=== PATIENT | female | born 1980 | race African-American/Black ===

== ENCOUNTER 2018-06-19 13:41 | Emergency (ER) | payer MEDICAID ==
[2018-06-19 13:45] VITALS: Ht 170.2 cm
[2018-06-19 15:04] VITALS: BP 118/77
== END 2018-06-19 15:04 | disposition home or self-care (01) ==
LOC: ED 13:41
DX: S90.32XA Contusion of left foot, initial encounter (principal); I10 Essential (primary) hypertension; E11.9 Type 2 diabetes mellitus without complications; Z88.5 Allergy status to narcotic agent; Z88.8 Allergy status to other drugs, medicaments and biological substances; Z94.1 Heart transplant status; X15.3XXA Contact with hot saucepan or skillet, initial encounter; Y93.89 Activity, other specified; Y92.89 Other specified places as the place of occurrence of the external cause; Y99.8 Other external cause status

== ENCOUNTER 2020-03-19 18:51 | Inpatient (IN) | payer OTHER ==
[~2020-03-19] VITALS: Ht 170.2 cm; Wt 115.3 kg
--- NOTE | 2020-03-19 19:05 | NUR ---
DR BRAVO AT BEDSIDE FOR EVAL.
--- NOTE | 2020-03-19 19:15 | NUR ---
PATIENT BIBA FROM HOME, C/O GENERALZIED WEAKNESS. PATIENT STATES SHE WAS D/C TODAY FROM [facility], WAS ADMITTED AT [facility] IN JANUARY FOR ACUTE KIDNEY FAILURE, THEN TRANSFERED TO [facility]. PATIENT STATES, L UPPER ARM SHUNT WAS PLACED ON TUESDAY AND HAD DIALYSIS ON YESTERDAY (03/18/20). PATIENT AAOX4, NO ACUTE DISTRESS NOTED AT THIS TIME. NOTED DIALYSIS PORT ON R UPPER CHEST, L UPPER ARM SHUNT, R BREAT SWELLING, L ARM/RUFINO LE SWELLING. NOTED WOUND ON L UPPER CHEST, PER PATIENT SHE USE TO HAVE A PORT CATH, REMOVED ON 03/17/20. PATIENT IN GOWN, SAFETY PRECAUTIONS IN PLACE, MSE DONE BY DR. MACHADO, CALL LIGHT WITHIN REACH, WILL CONTINUE TO MONITOR.
--- NOTE | 2020-03-19 20:06 | NUR ---
LAB AT BEDSIDE
[2020-03-19 20:30] LABS: PLATELET COUNT 237 x10^3mcL (130-400)
[2020-03-19 20:34] LABS: RED CELL DISTRIBUTION WIDTH 30.3 % (11.5-14.5)
[2020-03-19 20:41] LABS: CALCIUM 8.6 mg/dL (8.5-10.1); CARBON DIOXIDE 27.5 mmol/L (21-32); CREATININE SERUM 2.2 mg/dL (0.6-1.0); POTASSIUM SERUM 3.3 mmol/L (3.5-5.1)
[2020-03-19 20:47] LABS: ALBUMIN 3.8 g/dL (3.4-5.0); BILIRUBIN TOTAL 0.63 mg/dL (0.20-1.00); TOTAL PROTEIN, SERUM 6.5 g/dL (6.4-8.2)
[2020-03-19 20:59] LABS: BAND NEUTROPHIL 3 % (0-10); METAMYELOCTE 2 % (0-2); MONOCYTE 9 % (0-7); SEGMENTED NEUTROPHILS 81 % (37-75)
--- NOTE | 2020-03-19 20:59 | NUR ---
CHANGED PATIENT DIAPER, PLACED NEW DIAPER, ELEVATED HEAD OF TO COMFORT, CALL LIGHT WITHIN REACH, WILL CONTINUE TO MONITOR.
[2020-03-19 21:03] LABS: rbc morphology (normal/abnorm) NORMAL (NORMAL); tear drop cell (dacryocyte) 1+
[2020-03-19 21:04] LABS: PLATELET MORPHOLOGY PLATELETS NORMAL
[2020-03-19] MEDS ORDERED: HYDROMORPHONE2 M1 PO ×2 (21:26→21:30)
[2020-03-19] MEDS ORDERED: SIMETHICONE80 MG PO (21:26)
[2020-03-19] MEDS ORDERED: MIRTAZAPINE15 M2 PO (21:26)
[2020-03-19] MEDS ORDERED: MORPHABOND ER15 MG PO (21:27)
[2020-03-19] MEDS ORDERED: KEFLEX500 M1 PO (21:27)
[2020-03-19] MEDS ORDERED: ONDANSETRON4 M3 PO (21:27)
[2020-03-19] MEDS ORDERED: APAP325 MG PO (21:27)
[2020-03-19] MEDS ORDERED: HYDRALAZINE HCL25 MG PO (21:28)
[2020-03-19] MEDS ORDERED: ARANESP0.025 MG/M IJ (21:28)
[2020-03-19] MEDS ORDERED: DELTASONE20 MG PO (21:29)
[2020-03-19] MEDS ORDERED: D-10001 TAB PO (21:29)
[2020-03-19] MEDS ORDERED: NOVOLOG FLEX100 U/M1 SC (21:30)
[2020-03-19] MEDS ORDERED: DULOXETINE HYDR30 MG PO (21:31)
[2020-03-19] MEDS ORDERED: METOLAZONE5 M1 PO (21:31)
[2020-03-19] MEDS ORDERED: TRAZODONE150 M1 (21:31)
[2020-03-19] MEDS ORDERED: HORIZANT300 MG PO (21:32)
[2020-03-19] MEDS ORDERED: EPO10I IV (21:32)
--- NOTE | 2020-03-19 21:44 | NUR ---
REPORT GIVEN TO AMINATA DELVALLE, EXT. [phone], ALL QUESTIONS ADDRDESS, CONFIRMED RM [id number]
--- NOTE | 2020-03-19 22:00 | NUR ---
RECEIVED PT FROM ED VIA [facility], CAME IN DUE TO WEAKNESS. AAOX4. DENIES HEADACHE/DIZZINESS. ABLE TO FOLLOW COMMANDS. NO SOB NOTED, LUNG SOUNDS CTA, O2 AT=99%, RA. DENIES CHEST PAIN/PRESSURE, SR ON THE MONITOR. DENIES ABDOMINAL DISCOMFORT. BOWEL SOUNDS ACTIVE. PT STATED THAT SHE HAS 7/10 LUE AND RIGT BREAST PAIN. W/ SWELLING ON THE LUE AND BLE. WEAK LEFT RADIAL PULSE AND WEAK PEDAL PULSES. W/ DRY SCAB ON THE LEFT CHEST (FROM THE PORTACATH THAT WAS REMOVED IN [place]). W/ STERI-STRIPS ON THE LEFT ARM (FROM THE SHUNT THAT WAS RECENTLY PLACED). W/ LUE SHUNT AND RIGHT CHEST DIALYSIS CATHETER, DRESSING CDI. PT STATED THAT SHE HAS OLIGURIA. ON HEMODIALYSIS 3-4 TIMES PER WEEK, LAST HD 03/18/20. NO IV SITE AT THIS TIME. SIDE RAILS UPX2. CALL LIGHT ON REACH. HOB ELEVATED AT 45 DEG. ENDORSED TO PRIMARY NURSE TATIANNA FOR CONTINUTY OF CARE
--- NOTE | 2020-03-19 22:00 | NUR ---
SEEN PT AT THIS TIME. NO COMPLAINTS AT THIS TIME. WILL CONTINUE TO MONITOR.
[2020-03-19 22:48] VITALS: BP 123/68
[2020-03-19 22:51] VITALS: Ht 170.2 cm; Wt 115.3 kg
--- NOTE | 2020-03-20 | NUR ---
DR. LEI PLACED IV TO R JUGULAR. IV PATENT AND INTACT, GOOD BLOOD RETURN, FLUSHES WELL. NO SIGNS OF ERYTHEMA, DRAINAGE, OR EDEMA NOTED. WILL CONTINUE TO MONITOR.
[2020-03-20 01:33] LABS: PHOSPHOROUS 3.9 mg/dL (2.5-4.9)
[2020-03-20 01:40] LABS: T3 TOTAL 0.44 ng/mL
[2020-03-20 01:43] LABS: FREE T4 0.78 ng/dL (0.76-1.46); FREE THYROXINE INDEX 1.6 ug/dL (1.4-4.5); T4(THYROXINE) 4.7 ug/dL (4.7-13.3)
[2020-03-20 01:45] LABS: CHOLESTEROL/HDL RATIO 2.8
--- NOTE | 2020-03-20 02:00 | NUR ---
PT AWAKE IN BED WATCHING TV. NO COMPLAINTS AT THIS TIME. PT STATES SHE IS OKAY AND COMFORTABLE AT THIS TIME. RR EVEN AND UNLABORED ON RA. CALL LIGHT WITHIN REACH. WILL CONTINUE TO MONITOR.
[2020-03-20 06:00] VITALS: BP 146/127
[2020-03-20] MEDS ORDERED: ELIQUIS2.5 MG PO (06:04)
--- NOTE | 2020-03-20 06:34 | NUR ---
PT AWAKE/WATCHING TV IN BED AT THIS TIME. NO SIGN OF ACUTE DISTRESS NOTED. RR EVEN AND UNLABORED ON RA. PT C/O PAIN 04/14 AT THIS TIME, DR. CASTILLO WAITING FOR CALL BACK. IV TO R JUGULAR, PATENT AND INTACT. CALL LIGHT WITHIN REACH. BED IN LOWEST POSITION. WILL ENDORSE CARE TO ONCOMING SHIFT NURSE.
[2020-03-20 07:49] LABS: PLATELET COUNT 224 x10^3mcL (130-400)
[2020-03-20 08:02] VITALS: BP 99/56
[2020-03-20 08:17] LABS: CALCIUM 8.9 mg/dL (8.5-10.1); CARBON DIOXIDE 24.5 mmol/L (21-32); CREATININE SERUM 2.5 mg/dL (0.6-1.0); POTASSIUM SERUM 3.2 mmol/L (3.5-5.1)
[2020-03-20 08:47] LABS: RED CELL DISTRIBUTION WIDTH 29.6 % (11.5-14.5)
--- NOTE | 2020-03-20 10:07 | NUR ---
ECHO PENDING. PATIENT HAD ECHO 5 WEEKS AGO AT [facility]. NEED TO REQUEST RECORDS FOR RESULTS. PREVIOUS ECHO DONE LESS THAN 6 MONTHS.
[2020-03-20 11:05] LABS: SEGMENTED NEUTROPHILS 78 % (37-75)
[2020-03-20 11:09] LABS: BAND NEUTROPHIL 2 % (0-10); MONOCYTE 9 % (0-7)
[2020-03-20 11:10] LABS: rbc morphology (normal/abnorm) ABNORMAL (NORMAL)
[2020-03-20 11:11] LABS: burr cell (echinocyte) 1+; tear drop cell (dacryocyte) 1+
--- NOTE | 2020-03-20 11:42 | NUR ---
Notified Dr. Sheldon of abnormal lab values. Orders received. Pt complained of pain in right breast and KI old AV shunt area. IV in right IJ is infiltrated. made aware.
[2020-03-20 16:48] VITALS: BP 163/71
--- NOTE | 2020-03-20 18:46 | NUR ---
Patient resting comfortably in bed, pain is controlled with PRN IM Morphine. HD done today, tolerated well. Right breast swelling/redness with generalized edema in all extremities. Had a BM today. Will endorse to night RN.
--- NOTE | 2020-03-20 19:43 | NUR ---
RECEIVED PT FROM DAY SHIFT NURSE. PT A/OX4. TELE#[address] AT 105. PT HAS EDEMA TO LUE AND BLE 3+. RR EVEN AND UNLABORED ON RA. PT HAS LUE SHUNT AND R CHEST DIALYSIS CATHETER. PT HAD DIALYSIS TODAY 03/20 WITH 2.6L OUTPUT. R BREASK DISCOLORATION, L ARM STERRI STRIPS, AND L CHEST SCAB BELLA. PT DENIES CHEST PAIN, SOB, OR PAIN AT THIS TIME. PT C/O ITCHYNESS TO BUE, WILL MEDICATE PER NOV. PT HAS NO IV ACCESS, DR. MILLS. CALL LIGHT WITHIN REACH. BED IN LOWEST POSITION. WILL CONTINUE TO MONITOR.
[2020-03-20 20:08] VITALS: BP 144/107
--- NOTE | 2020-03-21 01:40 | NUR ---
PT SLEEPING AT THIS TIME. NO C/O PAIN OR DISCOMFORT. NO SIGNS OF ACUTE DISTRESS NOTED. RR EVEN AND UNLABORED ON RA. CALL LIGHT WITHIN REACH. WILL CONTINUE TO MONITOR.
[2020-03-21 05:50] VITALS: BP 115/64
--- NOTE | 2020-03-21 06:17 | NUR ---
PT AWAKE IN BED RESTING COMFORTABLY. PT C/O ITCHYNESS, MEDICATED PT WITH BENEDRYL PER NOV. MORNING MEDICATION ADMINISTERED. NO SIGNS OF ACUTE DISTRESS NOTED. RR EVEN AND UNLABORED ON RA. NO C/O PAIN AT THIS TIME. CALL LIGHT WITHIN REACH. BED IN LOWEST POSITION. WILL ENDORSE CARE TO ONCOMING SHIFT NURSE.
--- NOTE | 2020-03-21 08:18 | NUR ---
AT 0730 - RECEIVED PATIENT FROM NIGHT NURSE. AWAKE, ALERT AND ORIENTED. PATIENT SITTING UP IN BED. NO DISTRESS. MONITOR SHOWING SINUS TACH; RATE 100-110. NO ECTOPIES NOTED. NO IV ACCESS. NOTED EXTENSIVE BLE AND BUE EDEMA 3+ R UPPER CHEST DIALYSIS CATHETER IN PLACE. AV SHUNT (NOT-IN USE) IN KI.
[2020-03-21 08:31] VITALS: BP 107/73
[2020-03-21 08:31] LABS: BASOPHIL % 0.2 % (0-2); PLATELET COUNT 231 x10^3mcL (130-400)
[2020-03-21 08:48] LABS: RED CELL DISTRIBUTION WIDTH 30.1 % (11.5-14.5)
[2020-03-21 08:50] LABS: CALCIUM 8.7 mg/dL (8.5-10.1); CARBON DIOXIDE 28.3 mmol/L (21-32); CREATININE SERUM 2.4 mg/dL (0.6-1.0); MAGNESIUM 1.9 mg/dL (1.8-2.4); POTASSIUM SERUM 3.6 mmol/L (3.5-5.1)
--- NOTE | 2020-03-21 10:02 | NUR ---
AT 0900 - MEDICATED WITH IM MORPHINE 2MG PER EMAR
[2020-03-21 12:42] VITALS: BP 87/59
--- NOTE | 2020-03-21 13:36 | NUR ---
DIALYSIS NURSE AT BEDSIDE FOR TODAY'S HEMODIALYSIS.
--- NOTE | 2020-03-21 14:21 | NUR ---
HEMODIALYSIS IN PROGRESS. CASE MANAGEMENT HAS SPOKEN WITH PATIENT. PATIENT REQUESTING PAIN MEDICATION.
--- NOTE | 2020-03-21 14:23 | NUR ---
PATIENT MADE AWARE THAT IM MORPHINE CANNOT BE ADMINSITERED AT THIS TIME DUE TO HYPOTENSION. CURRENT BP 70/40 DURING DIALYSIS.
--- NOTE | 2020-03-21 15:09 | NUR ---
DIALYSIS NURSE ADMINISTERING 50 ML ALBUMIN 25% FOR BP SUPPORT.
--- NOTE | 2020-03-21 15:23 | NUR ---
PHYSICAL THERAPY NOTE PATIENT IS ON DIALYSIS. TO FOLLOW UP
--- NOTE | 2020-03-21 16:59 | NUR ---
NASAL SWAB FOR COVID-19 COLLECTED AND TAKEN TO LAB. JEAN BAPTISTE VIRUS REST WAS DONE FOR PLACEMENT PURPOSES. HEMODIALYSIS NEARING COMPLETION. BP NOW STABLE. BLOOD GLUCOSE LEVEL 149. PATIENT SLEEPING GREATER PART OF THE DAY. HAS REFUSED LAST 2 DOSES OF TRAZODONE.
[2020-03-21 17:45] VITALS: BP 111/74
--- NOTE | 2020-03-21 18:50 | NUR ---
AT 1745 - HEMODIALYSIS COMPLETED. NO FLUID WAS REMOVED. PATIENT RECEIVED A TOTAL OF 700 ML FLUID DURING DIALYSIS FOR BP SUPPORT. POST HD BP 111/74. HR 99 PATIENT NOW EATING DINNER. AT 1830 - RECEIVED ORDER FOR IV ROCEPHIN. PATIENT HAS NO IV ACCESS. CALL PLACED FOR RESIDENT DOCTOR, DR HERRERA TO NOTIFY OF LACK OF IV ACCESS. WILL ENDORSE CARE TO NIGHT NURSE.
--- NOTE | 2020-03-21 20:15 | NUR ---
PATIENT RESTING IN BED, A/O X4, VERBALLY RESPONSIVE, DENIES HEADACHE AND DIZZINESS. BREATHING E/U ON ROOM AIR, DENIES SOB, SPO O2 94%. TELE #39, HR 98, DENIES CHEST PAIN. ABD SOFT AND ROUND. HD PATIENT, HD SESSIONS T-TH-SAT, HAD HD SESSION EARLIER TODAY WITH NO FLUIDS OUT, 700 ML FLUIDS IN AND LAST HD 03/21 2.6L OUT, SCHEDUED FOR HD SESSION TOMORROW, DIALYSIS NURSE ALREADY MADE AWARE OF HD SESSION TOMORROW. LUE SHUNT, THRILL AND BRUIT PRSENT, R CHEST DIALYSIS CATHER DRESSED AND CDI, +3 EDEMA NOTED IN BUE AND BLE, NO IV ACCESS @ THIS TIME, ALREADY MADE AWARE DURING DAY SHIFT PER DAY NURSE. DISCOLORATION TO R BREAST, 6 STERI STRIPS TO L ARM, CLOSED SCAB TO L CHEST D/T PREVIOUS PORT. PATIENT C/O OF 8/10 PAIN L ARM AND R BREAST, WILL GIVE PAIN MED PRN PER EMAR. CALL LIGHT WITHIN REACH, BED IN LOWEST POSITION. WILL CONTINUE TO MONITOR.
[2020-03-21 21:34] VITALS: BP 81/45
--- NOTE | 2020-03-21 21:40 | NUR ---
PATIENT'S BP 81/45, HR 97, DENIES DIZZINESS. UNABLE TO GIVE MORPHINE FOR PAIN 8/10 IN R BREAST AND L ARM DUE TO LOW BP. DR. GREY MADE AWARE, REQUESTED IF RESIDENT PHYSICIAN MAY PLACE A NEW PAIN MED PRN ORDER. DR. GREY STATED DUE TO PATIENT'S ALLERGIES, HE WILL HAVE TO LOOK OVER TO SEE WHAT PAIN MED CAN BE PRESCRIBED FOR PATIENT. WILL FOLLOW UP WITH DR. GREY.
--- NOTE | 2020-03-21 22:21 | NUR ---
PATIENT HAS PROCRIT PREPARED, HGB 8.5, UNABLE TO COMPLETE HD SESSION TODAY DUE TO LOW BP, INSTEAD HAD 700 ML FLUIDS INFUSED. LAST HD SESSION 03/20 206 OUT. CALLED NEPHROLOGY GROUP, DR. ANDERSON MADE AWARE, HE STATED TO HOLD THE PROCRIT FOR NOW.
--- NOTE | 2020-03-22 00:30 | NUR ---
PATIENT RESTING IN BED, STATED THAT PAIN IS "FINE" RIGHT NOW AND WANT TO SLEEP. BREATHING E/U, SHOWS NO SIGN OF PAIN OR DISTRESS. CALL LIGHT WITHIN REACH, WILL CONTINUE TO MONITOR.
--- NOTE | 2020-03-22 02:40 | NUR ---
PATIENT C/O OF PAIN 8/10 IN R BREAST AND LUE, PATIENT HAS MORPHINE PRN PER EMAR, WILL ASSESS PATIENT'S BP FIRST.
--- NOTE | 2020-03-22 03:00 | NUR ---
VS TAKEN, BP 119/103, HR 100, RR 18, AND PAIN LEVEL 8/10 IN R BREAST AND LUE. GAVE MORPHINE IM. ASSISTED PATIENT TO USE BEDPAN, CLEANSED PERINEAL AREA AND CHANGED CHUX PADS, COLLECTED URINE SAMPLE FOR UDS. CALL LIGHT WITHIN REACH, BED IN LOWEST POSITION. WILL CONTINUE TO MONITOR.
--- NOTE | 2020-03-22 03:50 | NUR ---
PATIENT REQUESTED FOR NOVA INSERTION, STATED THAT SHE STILL FEELS SOME URINE IN HER BLADDER, AND STATED TAHT SHE USUALLY PEES ONCE A SHIFT. INFORMED PATIENT THAT A BLADDER SCAN WILL BE CONDUCTED FIRST. BLADDER SCAN PERFORMED, URINE VOLUME FOUND WAS BETWEEN 40-90 ML. PATIENT STATED TAHT SHE IS GOOD WITHOUT NOVA.
[2020-03-22 04:54] VITALS: BP 94/58
--- NOTE | 2020-03-22 06:53 | NUR ---
PATIENT RESTING IN BED, DENIES PAIN @ THIS TIME. SCHEDULED FOR HD TODAY, LAST HD SESSION 03/20 2.6L OUT AND YESTERDAY HD WAS ATTEMPTED BUT DUE TO PATIENT'S LOW BP, 700 ML FLUIDS INFUSED. HD ACCESS @ TUNNELED CATHETER IN R UPPER CHEST, AV FISTULA THRILL AND BRUIT PRESENT. CALL LIGHT WITHIN REACH, ALL NEEDS MET, SAFETY PRECAUTIONS MAINTAINED THROUGHOUT SHIFT. WILL ENDORSE CARE TO DAY NURSE. CALLED RESIDENT PHYSICIAN TO FOLLOW UP ON PAIN MEDICATION PRN FOR PATIENT IN CASE PATIENT'S BP IS LOW AND MORPHINE CANNOT BE GIVEN. DR. HOOD STATED THAT HE WILL PLACE PAIN MEDICATION PRN ORDER.
[2020-03-22 07:07] LABS: PLATELET COUNT 218 x10^3mcL (130-400)
[2020-03-22 07:33] LABS: RED CELL DISTRIBUTION WIDTH 30.1 % (11.5-14.5)
[2020-03-22 07:38] LABS: ALBUMIN 3.8 g/dL (3.4-5.0); BILIRUBIN TOTAL 0.9 mg/dL (0.20-1.00); CALCIUM 8.8 mg/dL (8.5-10.1); CARBON DIOXIDE 26.9 mmol/L (21-32); CREATININE SERUM 2.5 mg/dL (0.6-1.0); POTASSIUM SERUM 4.3 mmol/L (3.5-5.1); TOTAL PROTEIN, SERUM 6.2 g/dL (6.4-8.2)
--- NOTE | 2020-03-22 08:21 | NUR ---
AAO TIMES 4. TELE # 39 SR. LUNGS CTA BUL, DIMINISHED BASES. O2 SAT ON RA 94%. BS'S ACTIVE TIMES 4. WITH EDEMA +2 TO LUE AND BLE, ALSO HER BREASTS ARE EDEMETOUS. NO IV ACCESS, PREVIOUS SHIFTS WERE UNABLE TO ACCESS HER. OBESE. HD PORT TO RIGHT CHEST WALL. AV SHUNT TO LUE ON FOREARM WITH BRUIT AND THRILL,NOT BEING ACCESSED AT THIS TIME. LEFT CHEST WALL WITH DRIED SCAB FROM PREVIOUS HD ACCESS DEVICE, SITE CDI, NO REDNESS OR DRAINAGE. COOPERATIVE. NO SOB.
[2020-03-22 08:45] VITALS: BP 86/55
[2020-03-22 09:20] VITALS: BP 86/54
--- NOTE | 2020-03-22 10:31 | NUR ---
I HELD THE COREG, LISA AND WENDY THIS AM, FOR A BP OF 86/54, DR RODRÍGUEZ IS AWARE OF ALL THE ABOVE, HE ORDERED MIDODRIN TO HELP HER BP.
[2020-03-22 11:47] LABS: AMPHETAMINE QUAL UR NONE DETECTED (See below)
[2020-03-22 12:05] VITALS: BP 115/77
--- NOTE | 2020-03-22 14:20 | NUR ---
Intervention/RDN Recommendation(s): 1) Continue CCHO diet 2) Add renal diet d/t ESRD
--- NOTE | 2020-03-22 14:20 | NUR ---
Initial Nutrition Assessment- Isabel Bess [id number] Dx: weakness, renal failure PMHx: protein S deficiency, antiphospholipid syndrome, DM, new onset renal failure on dialysis diagnosed 1 month ago, HTN, blood clots, arnold chiari, AV shunt L arm, hypothyroid PSHx: heart transplant 2 years ago, R breast cysts Labs: BUN: 47H, Creat: 2.5H, total protein: 6.2L, troponin: 0.143H, BNP: 2019.43H (03/19) Meds: Benadryl cream, cellcept, coreg, Cymbalta, desyrl, D50, folic acid, eliquis, Humulin R, keflex, Lasix, morphine sulfate, prednisone, Procrit, Remeron, sandimmune, vitamin B12, zestril Diet: CCHO PO Intakes: 75% x 3 meals Ht: 5'7 Wt: 253.7 lbs/115.326 kg BMI: 39.8 IBW: 135 lbs %IBW: 188% UBW: N/A Age: 39 Food Allergies: NKFA Skin: LCW with scab from previous HD port, no redness or drainage Trey: 19 Edema: +2 LUE + BLE GI: Bowel sounds active, last BM: 03/20/2020 RD Note (03/22/20): pt is on dialysis Tues/Thurs/Sat, pt complains of BLE edema and generalized, weakness, SOB on exertion, per MD progress note pt reported edema has improved after HD and wants to go back to rehab at [facility], per progress note- LE edema 2/2 CHF vs. ESRD, R breast pain likely 2/2 cellulitis, megaloblastic anemia, hypokalemia, DMOOC A1C pending, pt asleep at time of visit Problem with: N/V/D/C: none Problems with: Chewing/Swallowing: no Current appetite: good Recent wt changes: N/A %wt change: N/A Vitamin/Supplement: none Special Diet at Home: N/A Physical activity: N/A Education: pt asleep at time of visit, left CKD stage 5 dialysis nutrition education handout at bedside Estimated Nutritional Needs Based on IBW of 135 lbs/61.4 kg Energy: 6137-8501 kcal/d (30-35 kcal/kg for HD) Protein: 74-86 (1.2-1.4 g/kg for HD) Fluid: 1000 mL + urine output or per MD Nutrition Diagnosis 1) Altered nutrition related lab values related to ESRD, NSTEMI as evidenced by elevated BUN/Cr levels Intervention/RDN Recommendation(s): 1) Continue CCHO diet 2) Add renal diet d/t ESRD Monitor/Evaluate Goal: have pt meet 75% of estimated nutrient needs (met, ongoing) Monitor: PO intake, Labs, Skin integrity, Weights. F/U in 2-3 days as HR on 03/24-
[2020-03-22 14:49] LABS: MONOCYTE 2 % (0-7); SEGMENTED NEUTROPHILS 84 % (37-75)
[2020-03-22 14:50] LABS: rbc morphology (normal/abnorm) ABNORMAL (NORMAL); target cell (codocyte) 1+; tear drop cell (dacryocyte) 1+
[2020-03-22 16:57] VITALS: BP 100/64
--- NOTE | 2020-03-22 18:41 | NUR ---
ERIN THE PIC LINE NURSE CALLED ME AND SAID I MUST GET AN OK FROM THE PROGRAM ATTENDANT . I CALLED DR ANDERSON, AND HE SAID NOT TO INSERT A PIC LINE, HER PAIN CAN BE MANAGED PO OR IM, IF THATS ALL WE NEEDED IT FOR. THE PATIENT WAS C/O WANTING AN IV SITE, BECAUSE SHE IS GETTING IM MORPHINE. DR ANDERSON SAID THAT WE MIGHT NEED THAT SITE FOR HD IF THE CURRENT SITES STOP WORKING.
--- NOTE | 2020-03-22 19:35 | NUR ---
PATIENT RESTING IN BED, A/O X4, VERBALLY RESPONSIVE, DENIES DIZZINESS AND HEADACHE. BREATHING E/U ON ROOM AIR, SPO2 96%, DENIES SOB. TELE #39, SINUS TACHY, HR 106 DENIES CHEST PAIN. ABD SOFT AND ROUND. ESRD ON HD,CURRENTLY UNDEROING HD WITH DIALYSIS NURSE @ BEDSIDE, HD ACCESS @ TUNNELED CATHETER R UPPER CHEST, ALSO HAS AV SHUNT IN L ARM. +3 EDEMA IN BUE AND LUE. REPORTS PAIN LEVEL 8/10 IN R BREAST AND L ARM. R BREAST DISCOLORAITON, L ARM STERRI STRIPS AND SCAB @ L UPPER CHEST DUE TO PREVIOUS HD PORT PLACEMENT. NO IV ACCESS. CALL LIGHT WITHIN REACH, BED IN LOWEST POSITION. WILL CONTINUE TO MONITOR.
--- NOTE | 2020-03-22 20:10 | NUR ---
MADE A NOTE TO RESIDENT PHYSICIAN TO SPEAK WITH PATIEN REGARDING CARE PLAN WHEN AVAIABLE.
--- NOTE | 2020-03-22 20:36 | NUR ---
DR. GREY MADE AWARE OF PATIENT'S REQUEST TO SPEAK WITH PHYSICIAN REGARDING CARE, HE STATED THAT HE WILL SPEAK WITH PATIENT.
[2020-03-22 21:20] VITALS: BP 98/60
--- NOTE | 2020-03-22 21:45 | NUR ---
PATIENT C/O OF PAIN IN BUTTOCKS, ASSESSED SKIN, AND THERE IS A SMALL PINK SKIN OPENING IN L BUTTOCK, TOOK PICTURE OF WHICH WILL BE PLACED IN PATIENT'S CHART AND PLACED OPTIFOAM. PATIENT HAD RECEIVED HD EARLIER THIS EVENING, PLANNED ON ADMINISTERING PROCRIT HOWEVER PATIENT STATED THAT SHE WILL LIKE TO RECEIVE IT LATER BECAUSE IT "FARRAR" WHEN IT IS ADMINSTERED. PATIENT ALSO REQUESTED FOR FOAM WEDGE TO BE PLACE UNDER HER R SIDE TO HELP OFFSET PRESSURE OFF BUTT. PLACED FOAM WEDGE UNDER PATIENT'S R SIDE.
--- NOTE | 2020-03-22 22:15 | NUR ---
DR. GREY STATED THAT THE DAY PHYSICIANS WILL SPEAK WITH THE PATIENT REGARDING HER CARE, WILL NOTIFY PATIENT. DR. GREY WAS ALSO MADE AWARE OF PATIENT'S SMALL WOUND OPENING ON L BUTTOCK OF WHICH PICTURE WAS PLACE IN PATIENT'S CHART. DR. GREY STATED HE WILL LOOK INTO THE PATIENT'S CHART AND SEE IF A WOUND CONSULT IS NEEDED.
--- NOTE | 2020-03-22 22:45 | NUR ---
PATIENT MADE AWARE THAT DAY PHYSICIANS WILL SPEAK WITH HER REGARDING CARE PLAN INSTEAD OF NIGHT PHYSICIAN, SHE VERBALIZED UNDERSTANDING. INQUIRED IF PATIENT WILL LIKE TO RECEIVE PROCRIT @ THIS TIME, SHE STATED SHE WILL LIKE TO HAVE IT LATER.
--- NOTE | 2020-03-23 00:35 | NUR ---
PATIENT RESTING IN BED, STATES THAT PAIN LEVEL 6/10 IS TOLERABLE @ THIS TIME. REMOVED FOAM WEDGE UNDER PATIENT, PATIENT LYING SUPING, WITH HOB ELEVATED @ 90 DEGREES PER PATIENT'S REQUEST. CALL LIGHT WITHIN REACH, WILL CONTINUE TO MONITOR.
--- NOTE | 2020-03-23 04:30 | NUR ---
PATIENT REQUESTED FOR AIR MATTRESS, WENT TO RETRIEVE AIR MATTRESS AND PUMP AND BROUGHT TO ROOM. PATIENT CHANGED MIND, STATED THAT SHE THOUGHT IT WAS A DIFFERNT TYPE AND THAT SHE IS "FINE" WITH HER CURRENT MATTRESS.
--- NOTE | 2020-03-23 05:14 | NUR ---
DR. GREY MADE AWARE AGAIN OF PATIENT'S SMALL WOUND OPENING ON L BUTTOCK, WILL DETERMINE IF WOUND CONSULT WILL BE MADE.
[2020-03-23 05:47] VITALS: BP 104/69
--- NOTE | 2020-03-23 06:00 | NUR ---
PATIENT RESTING IN BED, BREATHING E/U ON ROOM AIR 97%, STATED THAT PAIN IN R BREAST AND L ARM IS MORE TOLERABLE @ 6/10. HAD HD SESSION YESTERDAY WITH 2 LITERS OUT, HD ACCESS @ R UPPER CHEST, AV SHUNT THRILL AND BRUIT PRESENT. PATIENT HAS SMALL WOUND OPENING @ L BUTTOCK WITH OPTIFOAM, CDI, PICTURE ALREADY PLACED IN PATIENT CHART, DR. GREY ALREADY MADE AWARE, HE STATED THAT HE WILL DETERMINE IF A WOUND CONSULT WILL BE PLACED. CALL LIGHT WITHIN REACH, ALL NEEDS MET, SAFETY PRECAUTIONS MAINTAINED THROUGHOUT SHIFT. WILL ENDORSE CARE TO DAY NURSE.
[2020-03-23 08:30] VITALS: BP 104/44
--- NOTE | 2020-03-23 08:30 | NUR ---
AAO TIMES 4. TELE # 39 SR. LUNGS CTA BILATERALLY, SOMEWHAT DIMINISHED AT BASES. OBESE. BS'S ACTIVE TIMES 4. +2 EDEMA LUE AND BLE. PERIPHERAL PULSES PALPABLE. COOPERATIVE. SHE KNOWS TO TURN HERSELF EVERY 2 HOURS AND STATES SHE IS ABLE TO ALSO. OPTIFOAM TO LEFT INNER BUTTOCK. NO C/O PAIN. NO SOB. AIR MATTRESS AT BEDSIDE, BUT SHE IS REFUSING AT THIS TIME.
[2020-03-23] MEDS ORDERED: COR3 PO (11:42)
[2020-03-23] MEDS ORDERED: ZES5 PO (11:42)
[2020-03-23] MEDS ORDERED: L20 PO (11:43)
[2020-03-23] MEDS ORDERED: PHARMASSURE V500 MCG PO (11:44)
[2020-03-23] MEDS ORDERED: SAN25 PO (11:45)
[2020-03-23] MEDS ORDERED: FOL1 PO (11:45)
[2020-03-23] MEDS ORDERED: CEL250 GT (11:45)
[2020-03-23] MEDS ORDERED: PROA PO (11:47)
[2020-03-23 12:30] VITALS: BP 100/55
[2020-03-23 14:52] VITALS: BP 100/55
--- NOTE | 2020-03-23 16:35 | NUR ---
I REMINDED HER THAT SHE HAS A BEDSORE ON HER BUTTOCKS AND ASKED HER IF SHE HAS BEEN TURNING HERSELF Q 2 HOURS SHE AGREED TO DO THIS AM. SHE REFUSED TO BE TURNED.
[2020-03-23 17:18] LABS: RED BLOOD CELLS 2.35 M/mm3 (4.10-5.10)
[2020-03-23 17:22] VITALS: BP 104/63
[2020-03-23 17:28] LABS: IRON 52 ug/dL (50-170); TOTAL IRON BINDING CAPACITY 298 ug/dL (250-450)
--- NOTE | 2020-03-23 18:17 | NUR ---
AAO TIMES 4, WHEN AWAKENED. SHE HAS SLEPT ALL DAY. NO C/O PAIN. NO SOB. COOPERATIVE TODAY, EXCEPT WITH TURNING. SHE DOESNT LIKE TO BE AWAKENED. NO IV SITE. RIGHT CHEST WALL HD PORT, LFA AV SHUNT. HD ORDERED FOR TOMORROW.
--- NOTE | 2020-03-23 20:15 | NUR ---
PATIENT RESTING IN BED, A/0 X4, VERBALLY RESPONSIVE, DENIES DIZZINESS AND HEADACHE. BREATHING E/U ON ROOM AIR, 98%, DENIES SOB AND PAIN. TELE # 39, NSR, HR 94. ABD SOFT AND ROUND. +3 EDEMA TO BUE AND BLE. R BREAST DISCOLORATION, STERRI STRIPS TO LUE AND SCAB @ L CHEST DUE TO PREVIOUS HD PORT. SCHEDULED FOR HD SESSION TMRW, WILL CALL DIALYSIS NURSE HERNANDEZ TO CONFIRM SESSION, LAST HD 03/22 2L OUT, HD ACCESS @ TUNNELED CATHETER R UPPER CHEST, AV SHUNT @ L ARM WITH THRILL AND BRUIT PRESENT. C/O OF 8/10 R BREAST AND L ARM, WILL GIVE PAIN MEDICATION PRN PER EMAR. OPTIFOAM IN PLACE ON L BUTTOCK, PATIENT REFUSED TO BE TURNED @ THIS TIME. CALL LIGHT WITHIN REACH, BED IN LOWEST POSITION. WILL CONTINUE TO MONITOR.
--- NOTE | 2020-03-23 20:42 | NUR ---
CALLED DIALYSIS NURSE MARY TO CONFIRM HD SESSION TMRW, SHE STATED THAT SHE WILL COME TOMORROW.
[2020-03-23 20:50] VITALS: BP 116/77
--- NOTE | 2020-03-24 00:45 | NUR ---
TOOK PICTURE OF PATIENT'S SMALL SKIN OPENING ON L BUTTOCK AFTER REMOVING OPTIFOAM, SCANT PINK DRAINAGE FROM WOUND, WILL PLACE PICTURE IN PATIENT'S CHART. PLACE NEW OPTIFOAM OVER L BUTTOCK. PATIENT TOLERATED PROCEDURE WELL.
--- NOTE | 2020-03-24 04:34 | NUR ---
PATIENT VOIDED REDDISH BROWN TINGED URINE, CHUX PADS CHANGED, PATIENT CLEANSED, OPTIFOAM SOILED AND REMOVED AND REPLACED WITH SMALL ISLAND DRESSING. PATIENT REFUSED OPTIFOAM AND REQUESTED FOR SMALLER DRESSING. PATIENT C/O OF PAIN 8/10 R BREAST AND L ARM, WILL GIVE PAIN MEDICATION PRN.
[2020-03-24 06:07] VITALS: BP 129/78
--- NOTE | 2020-03-24 06:30 | NUR ---
PATIENT RESTING IN BED, DENIES PAIN @ THIS TIME. SCHEDULED FOR HD SESSION TODAY, DIALYSIS NURSE MARY AWARE, HD ACCESS @ R UPPER CHEST, DRESSED, CDI, SHUNT @ LUE, THRILL AND BRUIT PRESENT, LAST HD 03/22 2L OUT. ISLAND DRESSING TO L BUTTOCK, WOUND PIC OF L BUTTOCK TAKEN, AND PLACED IN PATIENT CHART.TAKEN EARLIER DURING SHIFT CALL LIGHT WITHIN REACH, ALL NEEDS MET, NO SIGNIFICANT CHANGES DURING SHIFT, WILL ENDORSE CARE TO DAY NURSE.
--- NOTE | 2020-03-24 07:52 | NUR ---
RECEIVED PATIENT FROM [facility]. PATIENT SEATED IN BED AT THIS TIME, NO COMPLAINTS OF PAIN OR SOB. SPOKE WITH PATIENT ABOUT POSSIBLE PLAN FOR TODAY INLUDING PO MEDICATIONS, HD TODAY, AND POSSIBLE TRANSFER TO [facility]. PATIENT AWARE. INFORMED BY MOOK RAND THAT HD HAS BEEN ORDERED AND CONTACTED HD NURSE MARY. WILL HAVE TO WAIT FOR CASE MANAGEMENT TO SEE IF TRANSFER WILL HAPPEN TODAY PATIENT STATES THEY ARE ABLE TO DO HD AT [facility]. PATIENT ALSO ASKED FOR POSSIBLE SHOWER TODAY. PATIENT BUE & BLE EDEMATOUS, FRANKIE CATH IN PLACE, CDI, AND AV SHUNT TO L UPPER ARM. CALL LIGHT IN REACH.
[2020-03-24 09:42] VITALS: BP 123/85
[2020-03-24 13:29] VITALS: BP 105/69
--- NOTE | 2020-03-24 14:14 | NUR ---
PATIENT WITH PT ERIC FOR PHYSICAL THERAPY, PATIENT OBSERVED USE WALKER TO BATHROOM. PATIENT BACK TO BED AT THIS TIME.
--- NOTE | 2020-03-24 15:35 | NUR ---
HD NURSE HERNANDEZ AT BEDSIDE FOR HD TREATMENT.
[2020-03-24 16:54] VITALS: BP 105/69
[2020-03-24 17:30] VITALS: BP 111/74
--- NOTE | 2020-03-24 19:25 | NUR ---
PATIENT COMPLETED HD TREATMENT WITH 2 L OUT. PATIENT ACCEPTED TO [facility], TRANSPORT ARRANGED FOR 1900 VP PROJECT. REPORT GIVEN TO [facility] NURSE. TRANSFER PACKET COMPILED WITH CD IMAGES. SIGNATURES OBTAINED FOR TRANSFER AND DISCHARGE. TELE RETURNED TO [facility]. TRANSPORT TEAM ARRIVED, PATIENT WITH BELONINGS AND PACKET, ESCORTED DOWNSTAIRS VIA [facility].
== END 2020-03-24 19:25 | DRG 194 ==
LOC: ED 18:51 → DU 21:01
PROVIDERS: Emergency Medicine; Internal Medicine; Internal Medicine Hematology & Oncology; ADMIT Family Medicine; ATTEND Family Medicine
PROC: 5A1D70Z Performance of Urinary Filtration, Intermittent, Less than 6 Hours Per Day (ICD-10-PCS; principal; 2020-03-20)
PROC: 5A1D70Z Performance of Urinary Filtration, Intermittent, Less than 6 Hours Per Day (ICD-10-PCS; 2020-03-21)
PROC: 5A1D70Z Performance of Urinary Filtration, Intermittent, Less than 6 Hours Per Day (ICD-10-PCS; 2020-03-22)
PROC: 5A1D70Z Performance of Urinary Filtration, Intermittent, Less than 6 Hours Per Day (ICD-10-PCS; 2020-03-24)
DX: I13.2 Hypertensive heart and chronic kidney disease with heart failure and with stage 5 chronic kidney disease, or end stage renal disease (principal); N18.6 End stage renal disease; Z94.1 Heart transplant status; D53.1 Other megaloblastic anemias, not elsewhere classified; E11.65 Type 2 diabetes mellitus with hyperglycemia; I42.9 Cardiomyopathy, unspecified; D63.1 Anemia in chronic kidney disease; N61.0 Mastitis without abscess; I50.23 Acute on chronic systolic (congestive) heart failure; Z20.828 Contact with and (suspected) exposure to other viral communicable diseases; E87.6 Hypokalemia; E03.9 Hypothyroidism, unspecified; Z88.5 Allergy status to narcotic agent; Z88.8 Allergy status to other drugs, medicaments and biological substances; Z99.2 Dependence on renal dialysis; Z79.01 Long term (current) use of anticoagulants; Z86.718 Personal history of other venous thrombosis and embolism; Z86.711 Personal history of pulmonary embolism; Z79.899 Other long term (current) drug therapy
CPT/HCPCS: 82962; 83880; 84439; 85613; 97116-GP; G0378; J0696; J0885-EC; J1644; J1815; J1885; J1940; J2270; J7030; J7512; J7515; J7517; P9047; Q0092; U0003-CS